=== PATIENT | female | born 1960 | race Caucasian/White ===

== ENCOUNTER 2016-12-01 19:26 | Emergency (ER) | payer MEDICAID ==
[2016-12-01 20:45] LABS: BASOPHIL % 0.3 % (0-2); PLATELET COUNT 318 x10^3mcL (130-400); RED CELL DISTRIBUTION WIDTH 13.1 % (11.5-14.5)
[2016-12-01 20:46] LABS: CALCIUM 8.6 mg/dL (8.5-10.1); CARBON DIOXIDE 29.5 mmol/L (21-32); CHLORIDE SERUM 101 mmol/L (98-107); CREATININE SERUM 0.6 mg/dL (0.6-1.0); GFR1 > 60 mL/min; GLUCOSE SERUM 145 mg/dL (74-106); POTASSIUM SERUM 3.8 mmol/L (3.5-5.1); SODIUM SERUM 139 mmol/L (136-145)
[2016-12-01 20:53] LABS: ALBUMIN 3.7 g/dL (3.4-5.0); ALKALINE PHOSPHATASE 85 U/L (46-116); ALT/SGPT 36 U/L (14-59); AST/SGOT 27 U/L (15-37); BILIRUBIN TOTAL 0.5 mg/dL (0.20-1.00); HDL CHOLESTEROL 58 mg/dL (40-60); MAGNESIUM 2.1 mg/dL (1.8-2.4); TOTAL PROTEIN, SERUM 8.1 g/dL (6.4-8.2)
[2016-12-01 20:55] LABS: CHOLESTEROL 301 mg/dL (<200)
[2016-12-02 00:02] VITALS: BP 142/70
== END 2016-12-02 00:03 | disposition home or self-care (01) ==
LOC: ED 19:26
PROVIDERS: Emergency Medicine
DX: R51 Headache (principal); R11.10 Vomiting, unspecified; E78.00 Pure hypercholesterolemia, unspecified
CPT/HCPCS: 83880; J1885; J2405; J7030; Q0092

== ENCOUNTER 2019-06-10 12:49 | Emergency (ER) | payer MEDICAID ==
[~2019-06-10] VITALS: Ht 162.6 cm; Wt 93.0 kg
[2019-06-10 13:11] VITALS: Ht 162.6 cm; Wt 93.0 kg
[2019-06-10 14:15] LABS: BASOPHIL % 0.2 % (0-2); PLATELET COUNT 327 x10^3mcL (130-400); RED CELL DISTRIBUTION WIDTH 13.2 % (11.5-14.5)
[2019-06-10 14:23] LABS: CALCIUM 8.3 mg/dL (8.5-10.1); CARBON DIOXIDE 30.4 mmol/L (21-32); CHLORIDE SERUM 98 mmol/L (98-107); CREATININE SERUM 0.7 mg/dL (0.6-1.0); GFR1 > 60 mL/min; GLUCOSE SERUM 102 mg/dL (74-106); POTASSIUM SERUM 3.6 mmol/L (3.5-5.1); SODIUM SERUM 136 mmol/L (136-145)
[2019-06-10 14:27] LABS: ALKALINE PHOSPHATASE 76 U/L (46-116); ALT/SGPT 48 U/L (14-59); AST/SGOT 24 U/L (15-37); BILIRUBIN TOTAL 0.4 mg/dL (0.20-1.00); TOTAL PROTEIN, SERUM 7.4 g/dL (6.4-8.2)
[2019-06-10 14:41] LABS: ALBUMIN 3.3 g/dL (3.4-5.0); CHOLESTEROL 233 mg/dL (<200)
[2019-06-10 15:26] VITALS: BP 155/76
== END 2019-06-10 15:26 | disposition home or self-care (01) ==
LOC: ED 12:49
PROVIDERS: Specialist
DX: F41.9 Anxiety disorder, unspecified (principal); F43.9 Reaction to severe stress, unspecified; G47.00 Insomnia, unspecified; I10 Essential (primary) hypertension; E78.00 Pure hypercholesterolemia, unspecified
CPT/HCPCS: 36415; G0480; Q0092

== ENCOUNTER 2019-08-14 11:16 | Emergency (ER) | payer MEDICAID ==
[~2019-08-14] VITALS: Ht 149.9 cm; Wt 90.7 kg
[2019-08-14 11:25] VITALS: Ht 149.9 cm; Wt 90.7 kg
[2019-08-14 13:07] VITALS: BP 156/84
== END 2019-08-14 13:07 | disposition home or self-care (01) ==
LOC: ED 11:16
DX: J20.9 Acute bronchitis, unspecified (principal); I10 Essential (primary) hypertension; E78.00 Pure hypercholesterolemia, unspecified